=== PATIENT | female | born 1935 | race African-American/Black ===

== ENCOUNTER 2021-08-25 19:21 | Emergency (ER) | payer OTHER ==
[~2021-08-25] VITALS: Ht 160 cm; Wt 74.0 kg
[~2021-08-25 19:21] MED LIST: AMLO5TAB4 PO; ATEN-42 PO; DOCU-150 PO; FLUT9.9S NS; LEVO125T8 PO; TRIA1CAP6 PO; WARF-67 PO
[2021-08-25 20:28] LABS: BASOPHILS % 0.6 % (0.0-2.0); EOSINOPHILS % 2.7 % (0.0-5.0); HEMATOCRIT. 38.1 % (36.0-48.0); HEMOGLOBIN. 12.8 g/dL (12.0-16.0); MEAN CORPUSCULAR HEMOGLOBIN 33.6 pg (28.0-32.0); MEAN CORPUSCULAR VOLUME 100.2 fL (81.0-99.0); MEAN PLATELET VOLUME 7.7 fl (7.4-10.4); MONOCYTES % 5.7 % (2.0-8.0); PLATELET 290 x1000/uL (130-400); RED CELL DISTRIBUTION WIDTH 14.7 % (11.6-14.6)
[2021-08-25 20:35] LABS: CHLORIDE 105 mEq/L (98-107)
[2021-08-26 01:03] VITALS: BP 145/58
== END 2021-08-26 01:15 | disposition short-term general hospital (02) ==
LOC: ER 19:21
DX: G45.9 Transient cerebral ischemic attack, unspecified (principal); G30.9 Alzheimer's disease, unspecified; Z79.899 Other long term (current) drug therapy; Z88.2 Allergy status to sulfonamides
CPT/HCPCS: 36415; 71045; 80053; 82962; 85025; 93005; 99285